=== PATIENT | male | born 1975 | race Hispanic/Latino ===

== ENCOUNTER 2018-06-24 11:56 | Emergency (ER) | payer OTHER ==
[2018-06-24 13:24] LABS: BUN Blood Urea Nitrogen 16 mg/dL (7-18); Bicarbonate 30 mmol/L (21-32); Glucose Level 179 mg/dL (74-106); Potassium 4.1 mmol/L (3.5-5.1); Sodium Level 139 mmol/L (136-145)
[2018-06-24 13:33] LABS: Absolute Lymphocytes (CBC) 1.7 K/uL (0.7-4.9); Absolute Monocytes 0.7 K/uL (0.1-1.3); Absolute Neutrophil 6.8 K/uL (1.8-8.0); Basophils % 0.8 % (0-1.3); Eosinophils % 1.9 % (0-4.4); Hematocrit 48.5 % (39.6-49.0); Lymphocytes % 18.1 % (15.3-44.8); MCH 31.9 pg (27.0-35.0); MCV 91.3 fL (80-100); MPV 9.3 fL (7.6-11.3); Monocytes % 7.6 % (3.3-12.3); RBC Red Blood Cell Count 5.31 M/uL (4.33-5.43)
--- NOTE | 2018-06-24 13:52 | ER ---
Nurse's Notes [facility] Name: Ridge Fong Age: 42 yrs Sex: Male : 1975 Arrival Date: 06/24/2018 Time: 11:57 Bed 20 Private MD: Shelley Harrell H Diagnosis: Hyperglycemia, unspecified Presentation: 06/24 12:10 Presenting complaint: Patient states: i started last Sunday, trish off, feel like hj light headed but not dizzy; feels not right; yesterday, i took by BGL- 263; drink a lot of water, went down to 150 and this morning my BGL dropped to 49; denies N/V;. Transition of care: patient was not received from another setting of care. Onset of symptoms was June 24, 2018. Risk Assessment: Do you want to hurt yourself or someone else? Patient reports no desire to harm self or others. Initial Sepsis Screen: Does the patient meet any 2 criteria? No. Patient's initial sepsis screen is negative. Does the patient have a suspected source of infection? No. Patient's initial sepsis screen is negative. Care prior to arrival: None. 12:10 Method Of Arrival: Ambulatory 12:10 Acuity: ROXI 3 hj Triage Assessment: 12:13 General: Appears in no apparent distress. uncomfortable, Behavior is calm, cooperative, hj appropriate for age. Pain: Denies pain. Historical: - Allergies: 12:12 PENICILLINS; hj - Home Meds: 12:12 metoprolol tartrate 50 mg Oral tab 1 tab 2 times per day [Active]; hj - PMHx: 12:12 Hypertension; hj - PSHx: 12:12 None; hj - Immunization history:: Adult Immunizations up to date. - Social history:: Smoking status: Patient/guardian denies using tobacco, Patient uses alcohol, on a daily basis. - Ebola Screening: : Patient negative for fever greater than or equal to 101.5 degrees Fahrenheit, and additional compatible Ebola Virus Disease symptoms Patient denies exposure to infectious person Patient denies travel to an Ebola-affected area in the 21 days before illness onset. Screenin:13 Abuse screen: Denies threats or abuse. Denies injuries from another. Nutritional hj screening: No deficits noted. Tuberculosis screening: No symptoms or risk factors identified. Fall Risk None identified. Assessment: 12:20 General: Appears in no apparent distress. Behavior is calm, cooperative, appropriate tw2 for age. Pain: Denies pain. Neuro: Level of Consciousness is awake, alert, obeys commands, Oriented to person, place, time, situation. Cardiovascular: Heart tones S1 S2 Capillary refill < 3 seconds. Respiratory: Airway is patent Respiratory effort is even, unlabored, Respiratory pattern is regular, symmetrical, Breath sounds are clear bilaterally. GI: Abdomen is round non-distended, obese, Bowel sounds present X 4 quads. : No signs and/or symptoms were reported regarding the genitourinary system. EENT: No signs and/or symptoms were reported regarding the EENT system. Derm: No signs and/or symptoms reported regarding the dermatologic system. Musculoskeletal: Circulation, motion, and sensation intact. Range of motion: intact in all extremities. 13:28 Reassessment: Patient appears in no apparent distress at this time. No changes from tw2 previously documented assessment. Patient and/or family updated on plan of care and expected duration. Pain level reassessed. Patient is alert, oriented x 3, equal unlabored respirations, skin warm/dry/pink. 14:46 Reassessment: Patient appears in no apparent distress at this time. No changes from tw2 previously documented assessment. Patient and/or family updated on plan of care and expected duration. Pain level reassessed. Patient is alert, oriented x 3, equal unlabored respirations, skin warm/dry/pink. Vital Signs: 12:13 BP 148 / 107; Pulse 63; Resp 18; Temp 98.4(TE); Pulse Ox 100% on R/A; Weight 114.76 kg; Height 5 ft. 6 in. (167.64 cm); Pain 0/10; 13:27 BP 129 / 85; Pulse 69; Resp 17; Pulse Ox 97% on R/A; tw2 12:13 Body Mass Index 40.84 (114.76 kg, 167.64 cm) ED Course: 11:57 Patient arrived in ED. sb2 11:59 Shelley Harrell DO is Private Physician. sb2 12:12 Triage completed. 12:13 Arm band placed on right wrist. 12:13 Patient has correct armband on for positive identification. Bed in low position. Call light in reach. Side rails up X 1. Adult w/ patient. 12:17 Mirna Castillo, RN is Primary Nurse. tw2 12:37 Tong Mcconnell MD is Attending Physician. gs 12:59 Inserted saline lock: 22 gauge in right antecubital area, using aseptic technique. tw2 Blood collected. 13:52 Shelley Harrell DO is Referral Physician. 14:15 Awaiting lab results, Awaiting: prior to discharge, per Paul,Tech should be resulted in tw2 10 minutes. 14:45 No provider procedures requiring assistance completed. IV discontinued, intact, tw2 bleeding controlled, No redness/swelling at site. Pressure dressing applied. Administered Medications: No medications were administered Point of Care Testing: Blood Glucose: 12:13 Blood Glucose: 170 mg/dL; hj Ranges: Outcome: 13:52 Discharge ordered by . gs 14:45 Discharged to home ambulatory. tw2 14:45 Condition: stable 14:45 Discharge instructions given to patient, significant other, Instructed on discharge instructions, follow up and referral plans. Demonstrated understanding of instructions, follow-up care, medications. 14:46 Patient left the ED. tw2 Signatures: Bear Pedersen RN RN Mirna Castillo, LILLIAM RN tw2 Tong Mcconnell MD MD Melita García sb2 Corrections: (The following items were deleted from the chart) 12:17 12:13 Pulse 63bpm; Resp 18bpm; Pulse Ox 100% RA; Temp 98.4F Temporal; 114.76 kg; Height hj 5 ft. 6 in.; BMI: 40.8; Pain 0/10; hj
--- NOTE | 2018-06-24 13:52 | EDPHYS ---
Physician Documentation [facility] Name: Ridge oFng Age: 42 yrs Sex: Male : 1975 Arrival Date: 06/24/2018 Time: 11:57 Bed 20 Private MD: Shelley Harrell H ED Physician Tong Mcconnell HPI: 06/24 13:49 This 42 yrs old Male presents to ER via Ambulatory with complaints of BLOOD gs SUGAR PROBLEM. 13:49 The patient or guardian reports hyperglycemia. Onset: The symptoms/episode gs began/occurred 3 day(s) ago. Associated signs and symptoms: Pertinent positives: polydipsia, malaise. Current symptoms: In the emergency department the patient's symptoms are unchanged from the initial presentation. The patient has experienced similar episodes in the past, a few times. The patient has not recently seen a physician. Historical: - Allergies: 12:12 PENICILLINS; hj - Home Meds: 12:12 metoprolol tartrate 50 mg Oral tab 1 tab 2 times per day [Active]; hj - PMHx: 12:12 Hypertension; hj - PSHx: 12:12 None; hj - Immunization history:: Adult Immunizations up to date. - Social history:: Smoking status: Patient/guardian denies using tobacco, Patient uses alcohol, on a daily basis. - Ebola Screening: : Patient negative for fever greater than or equal to 101.5 degrees Fahrenheit, and additional compatible Ebola Virus Disease symptoms Patient denies exposure to infectious person Patient denies travel to an Ebola-affected area in the 21 days before illness onset. ROS: 13:49 All other systems are negative. gs Exam: 13:49 Head/Face: Normocephalic, atraumatic. Eyes: Pupils equal round and reactive to light, gs extra-ocular motions intact. Lids and lashes normal. Conjunctiva and sclera are non-icteric and not injected. Cornea within normal limits. Periorbital areas with no swelling, redness, or edema. ENT: Nares patent. No nasal discharge, no septal abnormalities noted. Tympanic membranes are normal and external auditory canals are clear. Oropharynx with no redness, swelling, or masses, exudates, or evidence of obstruction, uvula midline. Mucous membranes moist. Neck: Trachea midline, no thyromegaly or masses palpated, and no cervical lymphadenopathy. Supple, full range of motion without nuchal rigidity, or vertebral point tenderness. No Meningismus. Chest/axilla: Normal chest wall appearance and motion. Nontender with no deformity. No lesions are appreciated. Cardiovascular: Regular rate and rhythm with a normal S1 and S2. No gallops, murmurs, or rubs. Normal PMI, no JVD. No pulse deficits. Respiratory: Lungs have equal breath sounds bilaterally, clear to auscultation and percussion. No rales, rhonchi or wheezes noted. No increased work of breathing, no retractions or nasal flaring. Abdomen/GI: Soft, non-tender, with normal bowel sounds. No distension or tympany. No guarding or rebound. No evidence of tenderness throughout. Back: No spinal tenderness. No costovertebral tenderness. Full range of motion. Skin: Warm, dry with normal turgor. Normal color with no rashes, no lesions, and no evidence of cellulitis. MS/ Extremity: Pulses equal, no cyanosis. Neurovascular intact. Full, normal range of motion. Neuro: Awake and alert, GCS 15, oriented to person, place, time, and situation. Cranial nerves II-XII grossly intact. Motor strength 5/5 in all extremities. Sensory grossly intact. Cerebellar exam normal. Normal gait. 13:49 Constitutional: The patient appears alert, awake. Vital Signs: 12:13 BP 148 / 107; Pulse 63; Resp 18; Temp 98.4(TE); Pulse Ox 100% on R/A; Weight 114.76 kg; hj Height 5 ft. 6 in. (167.64 cm); Pain 0/10; 13:27 BP 129 / 85; Pulse 69; Resp 17; Pulse Ox 97% on R/A; tw2 12:13 Body Mass Index 40.84 (114.76 kg, 167.64 cm) MDM: 12:38 Patient medically screened. 13:49 Differential diagnosis: DKA, hyperglycemia. Data reviewed: vital signs, nurses notes. gs Response to treatment: the patient's symptoms have markedly improved after treatment, and as a result, I will discharge patient. 06/24 12:44 Order name: CBC with Diff; Complete Time: 13:46 06/24 12:44 Order name: Basic Metabolic Panel; Complete Time: 13:46 06/24 12:44 Order name: Hemoglobin A1c 06/24 12:53 Order name: IV Start; Complete Time: 13:21 tw2 06/24 13:42 Order name: Urine Dipstick--Ancillary (enter results) eb Administered Medications: No medications were administered Point of Care Testing: Blood Glucose: 12:13 Blood Glucose: 170 mg/dL; hj Ranges: Critical Glucose Levels:Adult <50 mg/dl or >400 mg/dl <40 mg/dl or >180 mg/dl Disposition: 06/24/18 13:52 Discharged to Home. Impression: Hyperglycemia, unspecified. - Condition is Stable. - Discharge Instructions: Hyperglycemia, Prediabetes Eating Plan. - Work release form, Family Work Release, Medication Reconciliation Form, Thank You Letter, Antibiotic Education, Prescription Opioid Use form. - Follow up: Shelley Harrell DO; When: 2 - 3 days; Reason: Re-evaluation by your physician. Signatures: Dispatcher [employer] EDMS Bear Pedersen RN RN Mirna Castillo RN RN 2 Tong Mcconnell MD MD Corrections: (The following items were deleted from the chart) 14:46 13:52 06/24/2018 13:52 Discharged to Home. Impression: Hyperglycemia, unspecified. tw2 Condition is Stable. Forms are Medication Reconciliation Form, Thank You Letter, Antibiotic Education, Prescription Opioid Use. Follow up: Shelley Harrell; When: 2 - 3 days; Reason: Re-evaluation by your physician.
[2018-06-24 16:46] LABS: Urine Blood NEGATIVE (NEG); Urine Glucose NEGATIVE (NEG); Urine Protein NEGATIVE (NEG)
== END 2018-06-24 14:46 | disposition home or self-care (01) ==
LOC: ER 11:56
DX: R73.9 Hyperglycemia, unspecified (principal); I10 Essential (primary) hypertension; Z88.0 Allergy status to penicillin
CPT/HCPCS: 36415; 80048; 81003; 82962; 85025; 99283